=== PATIENT | female | born 1985 | race Caucasian/White ===

== ENCOUNTER → 2018-06-28 | Outpatient (CLI) | payer OTHER ==
[~2018-06-28] MED LIST: IBUPROFEN 800800 M1 PO; LIDOCAINE VISC100 M1 PO; NOHOMEMEDICATIONS; NORCO 5-325 TA1 EACH PO; NYSTATIN 1100000 U/M PO; ULTRAM 50MG TAB50 MG PO; ZOFRAN4 MG PO; ZPAK PO
== END ==
LOC: CAT 13:15
DX: R10.9 Unspecified abdominal pain (principal); R10.2 Pelvic and perineal pain

== ENCOUNTER → 2018-07-05 | Outpatient (CLI) | payer OTHER | LOC: MRI 07:48 | DX: M45.6 Ankylosing spondylitis lumbar region (principal); M16.11 Unilateral primary osteoarthritis, right hip; G96.19 Other disorders of meninges, not elsewhere classified; N83.292 Other ovarian cyst, left side ==

== ENCOUNTER → 2019-01-10 | Outpatient (CLI) | payer BC ==
--- NOTE | 2019-01-10 11:47 | EXE ---
[facility] [address] [place] [address] STRESS ECHOCARDIOGRAM Name: BONI MALDONADO Room #: REG CL [facility]#: [id number] ������������� Admission: 01/10/19 ������������� Attend Phys: Darrell Tinsley Discharge: ��� ������������� ��� Date of : 83 Date of Service: 01/10/19 1147 �� Report #: [id number] �������� ��������������������������������������������[id number] THIS REPORT FOR: //name// APPROVED REPORT Study performed: 01/10/2019 09:37:59 Exam: Stress Echocardiogram Indication: Palpitations Patient Location: Echo lab Stress Nurse: Judy Rodriguez RN Status: routine Ht: 5 ft 4 in Rhythm: NSR Medical History Allergies: No known drug allergies Procedure The patient underwent an Exercise Stress Test using the Beny Protocol. Blood pressure, heart rate, and EKG were monitored. An Echocardiogram was performed by unit technician in four stages in quad fashion. At peak stress, four selected images were obtained and placed side by side with resting images for comparison. Stress Test Details Stress Test: Exercise stress testing was performed using a Beny protocol. HR Resting HR: 84 bpm Max Heart Rate (APMHR): 186 bpm Max HR Achieved: 203 bpm Target HR (85% APMHR): 158 bpm % of APMHR: 109 Recovery HR: 155 bpm HR response to stress: Normal HR response to stress BP Resting BP: 110/70 mmHg Max BP: 130/60 mmHg Recovery BP: 120/58 mmHg BP response to stress: Normal blood pressure response to stress. ECG Clinical [facility] [address] [place] [address] STRESS ECHOCARDIOGRAM Name: BONI MALDONADO Room #: REG CL [facility]#: [id number] ������������� Admission: 01/10/19 ������������� Attend Phys: Darrell Tinsley Discharge: ��� ������������� ��� Date of : 83 Date of Service: 01/10/19 1147 �� Report #: [id number] �������� ��������������������������������������������[id number] Reason for Termination: Completed protocol Stress Symptoms: Chest tightness Exercise duration: 7 min 05 sec Highest Stage Achieved: Stage 3: 3.4 mph at 14% grade. Exercise capacity: 10.10 METs Stress ECG Conclusion 1. Subjectively abnormal with development of chest discomfort with exercise 2. Electrocardiographically negative for ischemia 3. Average functional capacity Pre-Stress Echo The resting Echocardiogram showed normal left ventricular contractility with an estimated Ejection Fraction of about 55-60%. Normal wall motion in all segments on baseline images. Post-Stress Echo The stress Echocardiogram showed normal left ventricular contractility with an estimated Ejection Fraction of about 65-70%. Normal augmentation of wall motion in all segments on post stress images. Conclusion Clinical Response: Ischemic Exercise Capacity: Average Stress ECG Response: Non-ischemic Stress Echo Images: Non-ischemic 1. Low risk study <Conclusion> 1. Low risk study ��������������������������������������������� <ELECTRONICALLY SIGNED> ���������������������������������������� By: Darrell Noel MD ��������������������������������������������� 01/10/19 1147 1147 114 Darrell Noel MD /INF
== END ==
LOC: CV 09:04
DX: E78.5 Hyperlipidemia, unspecified (principal); R00.2 Palpitations

== ENCOUNTER → 2019-10-22 | Outpatient (CLI) | payer OTHER | LOC: CAT 08:29 | DX: Z13.6 Encounter for screening for cardiovascular disorders (principal); I25.10 Atherosclerotic heart disease of native coronary artery without angina pectoris; E78.00 Pure hypercholesterolemia, unspecified ==

== ENCOUNTER → 2019-11-27 | Outpatient (CLI) | payer OTHER ==
[2019-11-27 10:21] LABS: CREATININE 0.8 mg/dL (0.6-1.0)
== END ==
LOC: LAB 09:46
PROVIDERS: ATTEND Nurse Practitioner
DX: R06.02 Shortness of breath (principal)

== ENCOUNTER → 2019-12-02 | Outpatient (CLI) | payer OTHER | LOC: SJCVCIMAG 07:55 | PROVIDERS: ATTEND Internal Medicine | DX: I08.1 Rheumatic disorders of both mitral and tricuspid valves (principal); Z90.49 Acquired absence of other specified parts of digestive tract ==

== ENCOUNTER → 2020-03-12 | Outpatient (CLI) | payer OTHER | LOC: MRI 10:32 → LAB 12:17 → MRI 14:38 | PROVIDERS: ATTEND Nurse Practitioner | DX: M25.851 Other specified joint disorders, right hip (principal); R79.89 Other specified abnormal findings of blood chemistry; E55.9 Vitamin D deficiency, unspecified ==

== ENCOUNTER → 2020-03-31 | Outpatient (CLI) | payer OTHER | LOC: NUC 07:36 → LAB 08:11 → NUC 08:11 | PROVIDERS: ATTEND Nurse Practitioner | DX: M85.88 Other specified disorders of bone density and structure, other site (principal); E55.9 Vitamin D deficiency, unspecified; R79.89 Other specified abnormal findings of blood chemistry ==

== ENCOUNTER → 2020-04-02 | Outpatient (CLI) | payer OTHER | END | disposition home or self-care (01) | LOC: RAD 09:16 | PROVIDERS: ATTEND Orthopaedic Surgery Sports Medicine | DX: M25.551 Pain in right hip (principal); M16.11 Unilateral primary osteoarthritis, right hip; Z98.890 Other specified postprocedural states ==

== ENCOUNTER → 2020-05-04 | Outpatient (CLI) | payer OTHER | LOC: ULTRA 08:09 | PROVIDERS: ATTEND Nurse Practitioner | DX: R22.9 Localized swelling, mass and lump, unspecified (principal) ==

== ENCOUNTER → 2020-05-21 | Outpatient (CLI) | payer OTHER ==
[~2020-05-21] MED LIST changes: +BIOTIN1 M1 PO; +BLACK ELDERBER1 EACH PO; +CITRACAL + D M1 EACH PO; +CLARITIN-D 241 EAC1 PO; +TURMERIC500 M2 PO; +VYVANSE70 MG PO
== END ==
LOC: LAB 07:37
PROVIDERS: ATTEND Orthopaedic Surgery Sports Medicine
DX: Z20.828 Contact with and (suspected) exposure to other viral communicable diseases (principal)

== ENCOUNTER → 2020-05-26 | Day surgery (SDC) | payer OTHER ==
[~2020-05-26] VITALS: Ht 165.1 cm; Wt 89.8 kg
[2020-05-26 07:35] VITALS: BP 113/73
[2020-05-26 09:54] VITALS: BP 113/73
--- NOTE | 2020-05-27 07:13 | O ---
[address] [address] OPERATIVE REPORT Name: BONI MALDONADO Room #: REG [facility].#: [id number] Admission: 05/26/20 Attend Phys: Emil Lyman MD Discharge: Date of : 83 Report #: [id number] THIS REPORT FOR: cc: Silvino Renteria MD, Neal A. MD McCabe,Emil Ferris MD ~ DATE OF SERVICE: 05/26/2020 SERVICE: Orthopedics. FACILITY: [facility]. SURGEON: Emil Lyman MD SMALL BUSINESS SALES REPRESENTATIVE: Alla Wheat NP. INDICATION FOR SMALL BUSINESS SALES REPRESENTATIVE: Extremity positioning, suture management, arthroscope management, assistance with repair. PREOPERATIVE DIAGNOSES: 1. Right hip pain. 2. Right hip labral tear. 3. Right hip chondromalacia. 4. Right hip impingement syndrome. POSTOPERATIVE DIAGNOSES: 1. Right hip pain. 2. Right hip labral tear. 3. Right hip chondromalacia. 4. Right hip impingement syndrome. PROCEDURES: 1. Right hip arthroscopic labral repair. 2. Right hip arthroscopic Cam osteochondroplasty. 3. Right hip arthroscopic chondroplasty. 4. Right hip arthroscopic subspine decompression. COMPLICATIONS: None. DRAINS: None. SPECIMENS: None. ANESTHESIA: General with regional. [address] [address] OPERATIVE REPORT Name: BONI MALDONADO Room #: REG [facility]#: [id number] Admission: 05/26/20 Attend Phys: Emil Lyman MD Discharge: Date of : 83 Report #: [id number] FINDINGS: 1. Anterior labral tear with a significant injury at the chondral labral junction, treated with Aimee CinchLock suture anchor x 2. 2. 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 3. Capsulotomy was closed with #2 Vicryl x 4. HISTORY: The patient is a young lady with a history of multiple years of worsening right hip pain. It had been progressively worsening more significantly over the past year or so. She had attempted conservative measures including rest, activity modifications, physical therapy, oral medicines, but still had activity of daily limiting type pain. She had difficulty even with sitting and walking. She had positive pain response with intraarticular injection, but did not have a sustained pain relief. She had impingement sign on physical examination and x-rays showed femoroacetabular impingement with alpha angle of approximately 60 degrees and a Tonnis grade of 0. The growth plates were closed and there was some prominence of the anterior-inferior iliac spine consistent with subspine impingement. The MRI showed a full-thickness anterior labral tear and after failing conservative measures for greater than three months, she was indicated for surgical treatment. Risks, benefits, alternatives, and indication of surgery discussed with her in detail. Risks include but not limited to pain, bleeding, infection, injury to nerves or blood vessels, persistent pain despite surgical intervention, failure of any repairs, progression of preexisting chondral injury, stiffness, need for further surgery as well as complications related to anesthesia such as stroke, heart attack, pulmonary complications, thromboembolic disease and . Despite these risks, she wished to proceed. PROCEDURE IN DETAIL: After right lower extremity was correctly identified in the preoperative holding as operative extremity, the patient underwent regional nerve block. She was then taken to the operating room where general anesthesia was induced without complication. She was padded appropriately. Prophylactic antibiotics were administered at appropriate time. C-arm was used to identify the extended Cam deformity on the right hip, which was moderate in severity and had maximal alpha angle around 60-62 degrees and the right hip was then prepped and draped in standard sterile fashion. Timeout procedure performed. Traction was applied to right lower extremity and then a standard anterolateral viewing portal was established followed by anteromedial working portal. Diagnostic arthroscopy revealed synovitis and capsular erythema, which will be the reason for continuous passive motion machine usage postoperatively in order to reduce the risk of adhesions and scarring as these can be reasons for reoperation in this patient population. Transverse capsulotomy was performed. Synovitis with fraying of the chondral labral junction, which was moderate in severity. This was treated with debridement and limited chondroplasty with the [address] [address] OPERATIVE REPORT Name: JOELBONI Room #: REG [facility] [place]..#: [id number] Admission: 05/26/20 Attend Phys: Emil Lyman MD Discharge: Date of : 83 Report #: [id number] shaver. The capsule was reflected off the dorsal side of the labrum allowing exposure to the acetabular rim where there was a full thickness labral tear. A bur was used to decorticate the acetabular rim to create a fresh bleeding surface for labral re-fixation. Attention was then turned towards the subspine region of the hip where the prominent anterior-inferior iliac spine was dissected with the cautery and then a bur was used to perform a limited subspine decompression recessing the subspine region. The bony debris was then lavaged out of the hip and then labral re-fixation was performed with Aimee CinchLock suture anchor x 2. The labrum and cartilage were then probed and found to be stable at this point other than some softening of the cartilage at the chondral labral junction, which was treated with chondroplasty with the shaver. Traction was let down. Hip was flexed up. Attention was turned towards the peripheral compartment. Transverse capsulotomy was extended down the neck in a T fashion to allow access to the peripheral compartment and then a bur was used to perform the Cam osteochondroplasty in a typical fashion, resecting the pathologic bone. Instruments were removed. C-arm was brought in and I identified some additional bone that need to be resected and then placed the instruments back into the hip and completed the Cam osteoplasty. The instruments were removed. Again, C-arm was brought in and the Cam osteoplasty was completed. At this point, instruments were placed back into the hip. Bony debris was lavaged out of the hip and the T-shaped capsulotomy was closed with a total of four #2 Vicryl sutures. Instruments were then removed. Portal sites were closed. Sterile dressing was applied. The patient was awakened from anesthesia and taken to recovery room in stable condition. There were no complications. All counts were reported correct. <ELECTRONICALLY SIGNED> By: Emil Lyman MD 05/27/20 0713 1740 1928 Emil Lyman MD /nt
== END | disposition home or self-care (01) ==
LOC: OR 06:03
PROVIDERS: ATTEND Orthopaedic Surgery Sports Medicine
DX: M25.551 Pain in right hip (principal); S73.101A Unspecified sprain of right hip, initial encounter; M25.851 Other specified joint disorders, right hip; M94.251 Chondromalacia, right hip; F32.9 Major depressive disorder, single episode, unspecified; F41.9 Anxiety disorder, unspecified; Z98.890 Other specified postprocedural states; Z79.899 Other long term (current) drug therapy; Z98.51 Tubal ligation status; Z90.49 Acquired absence of other specified parts of digestive tract; Z90.710 Acquired absence of both cervix and uterus; X58.XXXA Exposure to other specified factors, initial encounter; Y93.89 Activity, other specified; Y92.89 Other specified places as the place of occurrence of the external cause; Y99.8 Other external cause status
CPT/HCPCS: 50010; 50101; 50386; 51320; 51538; 52001; 52282; 52304; 56524; 56527; 57092; 57103; 58273; 58274; 62110; 62900; 64039; 64043; 70005

== ENCOUNTER → 2020-06-03 | Outpatient (CLI) | payer OTHER ==
[~2020-06-03] MED LIST changes: +ASPIRIN325 PO; +CELEBREX 200 M200 M1 PO
== END ==
LOC: LAB 11:45
PROVIDERS: ATTEND Surgery
DX: Z01.812 Encounter for preprocedural laboratory examination (principal); Z20.828 Contact with and (suspected) exposure to other viral communicable diseases

== ENCOUNTER → 2020-06-08 | Day surgery (SDC) | payer OTHER ==
[~2020-06-08] VITALS: Ht 165.1 cm; Wt 92.5 kg
[~2020-06-08] MED LIST changes: +COLACE 100 MG100 MG PO; +MIRALAX17 GM PO
[2020-06-08 11:01] VITALS: BP 125/85
[2020-06-08 11:58] VITALS: BP 125/85
--- NOTE | 2020-06-15 10:53 | PATH ---
[facility] [address] [place] [address] PATHOLOGY RPT PROCEDURE Name: SHYANNE MALDONADO Room #: REG [facility] M.R.#: [id number] Admission: 06/08/20 Date of : 83 Discharge: Report #: [id number] Path Case #: [id number] [facility] Accession Number: [id number] . 01 Material submitted: . flank - LEFT FLANK MASS. Modifiers: left . 01 Clinical history: . LEFT FLANK MASS EXCISION . 02 Diagnosis: Mature adipose tissue, left flank mass, excision: - Compatible with a lipoma. (IUV/db; 06/10/2020) LBQ 06/10/2020 1453 Local . 02 Electronically signed: . Chelo Puri MD, Pathologist NPI- [id number] . 01 Gross description: . The specimen is received in formalin, labeled "Shyanne Maldonado, left flank mass". Received is a segment of yellow-nugent lobulated tissue measuring 8.1 x 6.8 x 4.3 cm in greatest dimensions. Sectioning reveals bright yellow cut surfaces with no grossly distinct nodules or lesions. The specimen is submitted representatively in cassette A1 and A2. (CAA; 06/09/2020) QAC/QA 06/09/2020 1547 Local . 02 Pathologist provided ICD-10: R22.2 . 02 CPT . 804812 Specimen Comment: A courtesy copy of this report has been sent to [phone] Specimen Comment: Report sent to Specimen Comment: A duplicate report has been generated due to demographic updates. Performed at: [address] [facility], [place] [id number] MD Pierce Lovelace MD Phone: [phone] Performed at: [address] [facility] [id number] MD Chelo Puri MD Phone: [phone]
== END | disposition home or self-care (01) ==
LOC: OR 09:56
PROVIDERS: ATTEND Surgery
DX: D21.4 Benign neoplasm of connective and other soft tissue of abdomen (principal); F32.9 Major depressive disorder, single episode, unspecified; F41.9 Anxiety disorder, unspecified; Z98.890 Other specified postprocedural states; Z79.899 Other long term (current) drug therapy; Z87.891 Personal history of nicotine dependence; Z98.51 Tubal ligation status; Z90.49 Acquired absence of other specified parts of digestive tract; Z90.710 Acquired absence of both cervix and uterus
CPT/HCPCS: 50010; 50101; 50386; 50417; 56526; 62110; 62900; 70005

== ENCOUNTER → 2020-07-17 | Outpatient (CLI) | payer OTHER ==
[2020-07-17 11:45] LABS: BASOPHILS 0.3 % (0.0-2.0); EOSINOPHILS 2.4 % (0.0-3.0); HEMATOCRIT 36.7 % (37.0-47.0); HEMOGLOBIN 12.1 gm/dL (12.0-15.0); MCH 28.9 pg (26.0-34.0); MCV 87.6 fL (80.0-100.0); MONOCYTES 7.2 % (1.0-8.0); PLATELET COUNT 347 thou/uL (150-400); POLYS 58.1 % (36.0-66.0); RBC 4.19 mil/uL (4.20-5.00); RDW 13.8 % (10.5-14.5); WBC 8.6 thou/uL (4.0-11.0)
[2020-07-17 12:01] LABS: ANION GAP 12 mmol/L (7-16); BUN 11 mg/dL (7-18); CALCIUM 9.8 mg/dL (8.5-10.1); CHLORIDE 101 mmol/L (98-107); CHOLESTEROL 231 mg/dL (<200); CO2 25 mmol/L (21-32); CREATININE 0.8 mg/dL (0.6-1.0); GLUCOSE 94 mg/dL (74-106); HDL CHOLESTEROL 44 mg/dL (>40); LDL CHOLESTEROL 163 mg/dL (<100); SGOT 16 U/L (15-37); SGPT 35 U/L (30-65); SODIUM 138 mmol/L (136-145); TC:HDL 5.3 Ratio (Not establshd); TOTAL BILIRUBIN 0.5 mg/dL (0.2-1.0); TOTAL PROTEIN 8.2 g/dL (6.4-8.2); TRIGLYCERIDE 124 mg/dL (<150); VLDL 25 mg/dL (<40)
[2020-07-18 07:08] LABS: 25-HYDROXY TOTAL 15.9 ng/mL (30.0-100.0)
[2020-07-18 18:06] LABS: ANA INTERPRETATION Negative (Negative)
== END ==
LOC: LAB 09:26
PROVIDERS: ATTEND Nurse Practitioner
DX: Z00.00 Encounter for general adult medical examination without abnormal findings (principal); R76.0 Raised antibody titer; E55.9 Vitamin D deficiency, unspecified; M25.50 Pain in unspecified joint; Z90.710 Acquired absence of both cervix and uterus

== ENCOUNTER → 2020-10-08 | Outpatient (CLI) | payer OTHER ==
[2020-10-08 15:09] LABS: CALCIUM 9.4 mg/dL (8.5-10.1); CREATININE 0.8 mg/dL (0.6-1.0); PHOSPHORUS 4.3 mg/dL (2.5-4.9)
== END ==
LOC: MRI 12:11
PROVIDERS: ATTEND Nurse Practitioner
DX: R51.9 Headache, unspecified (principal); R76.0 Raised antibody titer; R78.5 Finding of other psychotropic drug in blood; R79.89 Other specified abnormal findings of blood chemistry; E55.9 Vitamin D deficiency, unspecified; R79.82 Elevated C-reactive protein (CRP); R70.0 Elevated erythrocyte sedimentation rate

== ENCOUNTER → 2020-10-09 | Outpatient (CLI) | payer OTHER ==
[2020-10-09 15:32] LABS: ALBUMIN 3.9 g/dL (3.4-5.0); CALCIUM 9.1 mg/dL (8.5-10.1); CREATININE 0.8 mg/dL (0.6-1.0); POTASSIUM 4.2 mmol/L (3.5-5.1); TOTAL BILIRUBIN 0.3 mg/dL (0.2-1.0); TOTAL PROTEIN 8.2 g/dL (6.4-8.2)
[2020-10-10 18:06] LABS: ANA INTERPRETATION Negative (Negative)
== END ==
LOC: LAB 14:35
PROVIDERS: ATTEND Nurse Practitioner
DX: R79.89 Other specified abnormal findings of blood chemistry (principal); R76.0 Raised antibody titer; R79.82 Elevated C-reactive protein (CRP); R70.0 Elevated erythrocyte sedimentation rate; M54.5 Low back pain; G89.29 Other chronic pain

== ENCOUNTER → 2020-10-13 | Outpatient (CLI) | payer OTHER | LOC: NUC 06:52 | PROVIDERS: ATTEND Nurse Practitioner | DX: E21.3 Hyperparathyroidism, unspecified (principal); M85.88 Other specified disorders of bone density and structure, other site ==

== ENCOUNTER → 2020-11-12 | Outpatient (CLI) | payer OTHER | LOC: ULTRA 07:49 | PROVIDERS: ATTEND Otolaryngology Plastic Surgery within the Head & Neck | DX: E04.1 Nontoxic single thyroid nodule (principal); E21.3 Hyperparathyroidism, unspecified; M85.80 Other specified disorders of bone density and structure, unspecified site; F48.8 Other specified nonpsychotic mental disorders ==

== ENCOUNTER → 2020-11-25 | Outpatient (CLI) | payer OTHER ==
[2020-11-25 13:10] LABS: CALCIUM 9.9 mg/dL (8.5-10.1); CREATININE 0.7 mg/dL (0.6-1.0); PHOSPHORUS 4.1 mg/dL (2.6-4.7)
== END ==
LOC: LAB 12:02
PROVIDERS: ATTEND Otolaryngology Plastic Surgery within the Head & Neck
DX: E21.3 Hyperparathyroidism, unspecified (principal)

== ENCOUNTER → 2021-05-14 | Outpatient (CLI) | payer OTHER ==
[2021-05-14 13:23] LABS: ABSOLUTE NEUTROPHILS 5.6 thou/uL (1.4-8.2); BASOPHILS 0.7 % (0.0-2.0); EOSINOPHILS 1.4 % (0.0-3.0); HEMATOCRIT 37.9 % (37.0-47.0); HEMOGLOBIN 12.8 gm/dL (12.0-15.0); MCH 29.2 pg (26.0-34.0); MCHC 33.7 g/dL (28.0-37.0); MCV 86.8 fL (80.0-100.0); MONOCYTES 6.2 % (1.0-8.0); PLATELET COUNT 356 thou/uL (150-400); POLYS 61.7 % (36.0-66.0); RBC 4.36 mil/uL (4.20-5.00)
[2021-05-14 14:01] LABS: ALBUMIN 3.9 g/dL (3.4-5.0); CALCIUM 9.6 mg/dL (8.5-10.1); CREATININE 0.7 mg/dL (0.6-1.0); MAGNESIUM 2.1 mg/dL (1.8-2.4); PHOSPHORUS 3.4 mg/dL (2.5-4.9); POTASSIUM 3.8 mmol/L (3.5-5.1); TOTAL BILIRUBIN 0.4 mg/dL (0.2-1.0); TOTAL PROTEIN 8.2 g/dL (6.4-8.2)
[2021-05-14 14:49] LABS: CALCIUM 9.6 mg/dL (8.5-10.1); CREATININE 0.7 mg/dL (0.6-1.0); PHOSPHORUS 3.6 mg/dL (2.6-4.7)
[2021-05-15 04:06] LABS: 25-HYDROXY TOTAL 13.7 ng/mL (30.0-100.0)
[2021-05-15 18:06] LABS: ANTI-DNA SCREEN <1 IU/mL (0-9); ANTI-RNP <0.2 AI (0.0-0.9)
== END ==
LOC: LAB 11:59
PROVIDERS: ATTEND Nurse Practitioner
DX: E55.9 Vitamin D deficiency, unspecified (principal); E89.2 Postprocedural hypoparathyroidism; M25.50 Pain in unspecified joint; H04.123 Dry eye syndrome of bilateral lacrimal glands; M54.50 Low back pain, unspecified; G89.29 Other chronic pain